=== PATIENT | female | born 1980 | race African-American/Black ===

== ENCOUNTER → 2017-12-22 09:13 | Outpatient (CLI) | payer OTHER, SELFPAY ==
[2017-12-25 09:34] LABS: Anti Cardiolipin Antibody IgG <14 GPL
[2017-12-26 00:36] LABS: Protein C Antigen 99 % normal (70-140)
[2017-12-26 18:22] LABS: B2-Glycoprotein I IgA AB < 9 SAU (< OR = 20); B2-Glycoprotein I IgG AB < 9 SGU (< OR = 20); B2-Glycoprotein I IgM AB < 9 SMU (< OR = 20); Cardiolipin Ab IgA < 11 APL; Cardiolipin Ab IgG < 14 GPL; Cardiolipin Ab IgM < 12 MPL; Phos. Serine AB IgM < 25 U/mL; dRVVT Screen 33 seconds (< OR = 45)
[2017-12-26 21:54] LABS: PTT-LA Screen 35 seconds (< OR = 40); dDRVVT Screen 29 seconds (< OR = 45)
== END ==
PROVIDERS: PCP Acupuncturist; Visit Provider Specialist
DX: N96 Recurrent pregnancy loss (principal)
CPT/HCPCS: 36415; 81240; 81241; 85302; 85306; 85597; 85613; 85730; 86146; 86147; 86148; 88230; 88262

== ENCOUNTER → 2018-01-18 16:16 | Outpatient (CLI) | payer OTHER, SELFPAY ==
[2018-01-18 17:27] LABS: HCG Quantitative /Beta subunit < 2.39 mIU/mL
== END ==
PROVIDERS: PCP Acupuncturist; Visit Provider Specialist
DX: Z32.00 Encounter for pregnancy test, result unknown (principal)
CPT/HCPCS: 36415; 84702

== ENCOUNTER → 2018-02-08 16:38 | Outpatient (CLI) | payer OTHER, SELFPAY ==
[2018-02-08 18:37] LABS: HCG Quantitative /Beta subunit 2075.5 mIU/mL
== END ==
PROVIDERS: PCP Acupuncturist; Visit Provider Specialist
DX: N91.2 Amenorrhea, unspecified (principal)
CPT/HCPCS: 36415; 84702

== ENCOUNTER → 2018-02-24 11:20 | Outpatient (CLI) | payer OTHER, SELFPAY ==
[2018-02-24 11:42] LABS: Add Manual Diff / Slide Review NO; Basophils Percent Auto 0.6 % (0-2); Eosinophils Percent Auto 0.4 % (2-4); Hematocrit 39.7 % (36-46); Hemoglobin 13.3 g/dL (12.0-16.0); Lymphocytes Percent Auto 23.1 % (25-40); Mean Corpuscular HGB Conc 33.5 % (30-36); Mean Corpuscular Hemoglobin 27.6 PG (26-34); Mean Corpuscular Volume 82.3 fL (80-100); Monocytes Percent Auto 11.1 % (3-14); Neutrophils Absolute Auto 3800 /uL (3000-5900); Neutrophils Percent Auto 64.8 % (50-75); Platelet Count 267 X10^3/uL (150-400); Red Blood Cell Count 4.82 X10^6/uL (4.0-5.2); Red Cell Distribution Width 13.9 % (11.6-14.8); White Blood Cell Count 5.8 X10^3/uL (4.5-11.0)
[2018-02-24 11:43] LABS: Appearance Urine UA CLEAR; Bilirubin Urine UA NEGATIVE (NEGATIVE); Color Urine UA YELLOW; Glucose Urine UA NEGATIVE (Normal); Ketones Urine UA TRACE (NEGATIVE); Leukocyte Esterase Urine UA NEGATIVE (NEGATIVE); Nitrite Urine UA NEGATIVE (Negative); Occult Blood Urine UA TRACE-LYSED (Negative); Protein Urine UA NEGATIVE (Negative)
[2018-02-24 13:01] LABS: HCG Quantitative /Beta subunit 62092 mIU/mL
[2018-02-24 17:50] LABS: Hepatitis B Surface Antigen NEGATIVE s/c (NEGATIVE)
[2018-02-24 18:06] LABS: HIV 1 and 2 Antibody NEGATIVE (NEGATIVE); Hep C Virus Ab w/Reflex Quant NEGATIVE s/c (NEGATIVE)
[2018-02-26 13:56] LABS: HSV 2 IGG AB < 0.90 index (< 0.90); HSV1IGG < 0.90 index (< 0.90)
[2018-02-26 23:17] LABS: RPR Screen Nonreactive (Nonreactive)
== END ==
PROVIDERS: PCP Acupuncturist; Visit Provider Specialist
DX: N91.2 Amenorrhea, unspecified (principal); Z34.81 Encounter for supervision of other normal pregnancy, first trimester; Z3A.01 Less than 8 weeks gestation of pregnancy
CPT/HCPCS: 36415; 80055; 81003; 84702; 86695; 86696; 86703; 86787; 86803; 86850; 86900; 86901; 87086

== ENCOUNTER → 2018-06-01 07:14 | Outpatient (CLI) | payer BC, SELFPAY ==
--- NOTE | 2018-06-01 07:18 | DI.US.S_ITS ---
PROCEDURE: US OB >= 14 WEEKS FETUS INDICATIONS: ANATOMY OUTSIDE/PRIOR DATING DATA: Last menstrual period (LMP): 01/02/18. LMP-based estimated date of delivery (JUAN): 10/09/18. First dating scan (date and location): 06/01/18. Estimated date of delivery (JUAN) from first dating scan: 10/19/18. TECHNIQUE: Real-time scanning was performed of the fetus, with image documentation and biometric measurements. Endovaginal scanning: No COMPARISON: [facility] [facility], , OB >= 14 WEEKS FETUS, 04/12/2018, 12:12. FINDINGS: General: A single living intrauterine gestation is present. Presentation: Vertex. Placenta: Placental position is posterior, without previa. Amniotic fluid index: 7.7 cm, normal range is 5-24 cm. heart rate: 160 beats per minute. Maternal cervical canal: 5.0 cm long. Normal lower limit is 2.5 cm. biometrics: Biparietal diameter: 19 weeks 3 days Head circumference: 19 weeks 6 days Abdominal circumference: 20 weeks 3 days Femur length: 20 weeks 1 day Estimated gestational age from initial scan: not applicable. Composite gestational age from present scan: 20 weeks 0 days Estimated weight and percentile: 340 g; 5th percentile based on last menstrual period. Measurement variability for biometric dating: +/- 7 days from 14 weeks to 15 weeks 6 days gestation, +/- 10 days from 16 weeks to 21 weeks 6 days gestation, +/- 2 weeks from 22 weeks to 27 weeks 6 days gestation, +/- 3 weeks for 28 weeks gestation or later. weight reference: 4500 g or EFW >90/95% is considered macrosomia or large for gestational age. EFW <10% is small for gestational age. EFW 5% or less is considered intra-uterine growth restriction. Anatomic survey: Neuro: Ventricles are non-dilated at less than 10 mm. Cisterna magna is normal at 3-11 mm. Cerebellum is normal in size and morphology. Nuchal skin fold: Normal at less than 6 mm between 14-21 weeks gestational age. Face: Nose and lips, facial profile are normal. Spine: No evidence for spina bifida. Heart: 4-chambered heart is present, with normal ventricular outflow tracts. Diaphragm: Diaphragm is intact. Stomach: Left-sided stomach is present. Kidneys: No hydronephrosis. Normal is less than 5 mm in 2nd trimester, less than 7 mm in 3rd trimester. Cord: 3-vessel cord has orthotopic insertion. Bladder: Normal in size. Extremities: All 4 extremities identified. IMPRESSION: 1. Single living IUP with composite age of 20 weeks 0 days corresponding to ultrasound JUAN of 10/19/18. Estimated weight is at the 5th percentile based on last menstrual period. Recommend clinical correlation to exclude early developing intrauterine growth restriction. 2. Amniotic fluid index measuring 7.7 cm which is less than the 5th percentile for age. Followup recommended. 3. Normal anatomic survey. Dictated by: Vimal BRUSH Interpreted: Nba Amos MD on 06/01/2018 at 9:03 Approved by: Nba Amos M.D. on 06/01/2018 at 10:16
== END ==
PROVIDERS: PCP Acupuncturist; Visit Provider Specialist
DX: Z36.89 Encounter for other specified antenatal screening (principal); Z3A.20 20 weeks gestation of pregnancy
CPT/HCPCS: 76811